=== PATIENT | male | born 1995 | race Caucasian/White ===

== ENCOUNTER 2017-01-28 23:16 | Emergency (ER) | payer OTHER ==
[2017-01-28 23:25] VITALS: BP 160/80
[2017-01-28] MEDS ORDERED: Acetaminophen/oxyCODONE 325-5 MG Tab PO ONE (23:26)
--- NOTE | 2017-01-28 23:32 | EDM.PDOC ---
ED HPI GENERAL MEDICAL PROBLEM - General Chief Complaint: Lower Extremity Injury/Pain Stated Complaint: left leg injury Time Seen by Provider: 01/28/17 23:24 Source of Information: Reports: Patient History Limitations: Reports: No Limitations - History of Present Illness INITIAL COMMENTS - FREE TEXT/NARRATIVE: 21-year-old male attends the ED with an injury to his left medial anterior leg. Patient states he was point football for [employer] earlier today and took a helmet direct blow to the area. He was able to hobble around after this but over the subsequent 6-8 hours he is unable to walk at this time. He has an increasing hematoma in this area. Denies any numbness tingling in his foot. Denies any other injuries.he took 1000 mg of Motrin about 2 hours ago with minimal relief. He's been at the [employer] bar and has had 3 beers tonight. Does not appear to be that intoxicated. Onset: Today Onset Date: 01/28/17 Onset Time: 15:00 Duration: Hour(s): Location: Reports: Lower Extremity, Left ( and anterior tibia.) Quality: Reports: Ache, Throbbing Severity: Moderate Improves with: Reports: None (describes the pain as 8 out of 10.) Worsens with: Reports: Movement Context: Reports: Activity (attempt to weight-bear.injury playing football.) Associated Symptoms: Reports: No Other Symptoms Treatments CARE CLINICIAN: Reports: NSAIDS left lower leg Pain Score (Numeric/FACES): 8 - Related Data Allergies Allergy/AdvReac Type Severity Reaction Status Date / Time No Known Allergies Allergy Verified 01/28/17 23:25 Home Meds: Home Meds Albuterol Sulfate [Albuterol Sulfate HFA] 2 inh PO ASDIRECTED PRN 01/11/15 [ History] oxyCODONE HCl/Acetaminophen [Percocet 5-325 mg Tablet] 1 - 2 each PO Q4H PRN # 20 tablet 01/29/17 [Rx] Past Medical History Respiratory History: Reports: Asthma - Past Surgical History Other Musculoskeletal Surgeries/Procedures:: Nasal fracture with repair but fractured again 2 weeks later in football Social & Family History - Tobacco Use Smoking Status *Q: Never Smoker Second Hand Smoke Exposure: No - Alcohol Use Days Per Week of Alcohol Use: 1 Number of Drinks Per Day: 2 Total Drinks Per Week: 2 - Recreational Drug Use Recreational Drug Use: No - Living Situation & Occupation Living situation: Reports: Single Occupation: Student Review of Systems - Review of Systems Review Of Systems: See Below Constitutional: Reports: No Symptoms Eyes: Reports: No Symptoms Ears: Reports: No Symptoms Nose: Reports: No Symptoms Mouth/Throat: Reports: No Symptoms Respiratory: Reports: No Symptoms Cardiovascular: Reports: No Symptoms GI/Abdominal: Reports: No Symptoms Genitourinary: Reports: No Symptoms Musculoskeletal: Reports: No Symptoms Skin: Reports: No Symptoms Neurological: Reports: Paresthesia Psychiatric: Reports: No Symptoms ED EXAM, GENERAL - Physical Exam Exam: See Below Exam Limited By: No Limitations General Appearance: Alert, WD/WN, No Apparent Distress Respiratory/Chest: No Respiratory Distress, Lungs Clear, Normal Breath Sounds, No Accessory Muscle Use Cardiovascular: Normal Peripheral Pulses, Regular Rate, Rhythm, No Edema, No Gallop, No Murmur Extremities: Other (patient has a large hematoma measuring 12 cm x 8 cm left medial anterior tibia and calf area. He has good posterior tibial pulse and slightly weaker is pedis pulse in the left foot as compared to the right. No evidence of true compartment syndrome.) Neurological: Alert, Oriented, CN II-XII Intact, Normal Cognition, Normal Gait Psychiatric: Normal Affect, Normal Mood Skin Exam: Warm, Dry, Intact, Normal Color, No Rash Course - Vital Signs Last Recorded V/S: Last Vital Signs Temp 36.6 C 01/28/17 23:18 Pulse 92 01/28/17 23:18 Resp 18 01/28/17 23:18 BP 160/80 H 01/28/17 23:18 Pulse Ox 97 01/28/17 23:18 - Orders/Labs/Meds Meds: Medications Discontinued Medications Generic Name Dose Route Start Last Admin Trade Name Fito PRN Reason Stop Dose Admin Oxycodone/Acetaminophen 2 tab 01/28/17 23:26 01/28/17 23:35 Percocet 325-5 Mg PO 01/28/17 23:27 2 tab ONETIME ONE Administration - Radiology Interpretation Free Text/Narrative:: 21-year-old male presents the ED with an acute injury to the left lower leg. Injury from playing football to good direct blow to this area from another player's helmet. Has developed a large hematoma along the medial anterior aspect of his left tibia. This to the point now that he can no longer walk. Injury occurred about 1500 hrs. today and he could walk on it after the initial injury. He has good pulses to his left foot with no evidence of significant compartment syndrome. Plan x-ray of his left tib-fib will be obtained. Plan will be to Alexandr wrap the area with the idea of elevating it ice pack to the area one half out of every 4 hours and to stay off the leg until the hematoma resolves. Given 2 Percocet 5/3/25 milligram tablets in the ED for pain relief. Departure - Departure Time of Disposition: 00:14 Disposition: Home, Self-Care 01 Condition: Fair Clinical Impression: Contusion of left lower leg Qualifiers: Encounter type: initial encounter Qualified Code(s): S80.12XA - Contusion of left lower leg, initial encounter - Discharge Information Prescriptions: oxyCODONE HCl/Acetaminophen [Percocet 5-325 mg Tablet] 1 - 2 each PO Q4H PRN # 20 tablet PRN Reason: pain relief. Instructions: Hematoma, [id number] Referrals: Chandler Freedman Jr, MD [Primary Care Provider] - Forms: ED Department Discharge, ED Return to Work/School Form Additional Instructions: evaluation the emergency room tonight in regards to blunt force trauma that you suffered during football game earlier today with injury to the left lower leg. Development of a large hematoma is occurred in the muscle tissue of the left calf and anterior tibial muscle. X-ray revealed no bony fractures of the tibia itself. Treatment is to elevate the foot is much as possible for the next 3 days. Ice pack to the area one half hour out of every 4 hours for 48 hours after injury. After this may apply heat in the same fashion one half hour out of every 4 hours. Nonweightbearing crutch walking until able to weight-bear without hardly any pain this will likely be 5-7 days. Have the certified personal trainer look at the area in the next 4-5 days. May benefit from deep ultrasound treatment to help liquefy some of the blood and the muscle tissue and help speed up recovery. Will likely not be able to return to football practice for 10-14 days. I.e. when you can run up a flight of stairs without any pain you may return to practice.pain relief to be Motrin 600 mg every 6 hours to relieve inflammation. Percocet 5/3/25 milligram tablets one or 2 every 4-6 hours for pain not controlled by Motrin alone. No pain part will settle down over the next 3-4 days once the swelling has maxed out.
--- NOTE | 2017-01-30 12:50 | CR ---
Left tibia and fibula: Two views of the left tibia and fibula were obtained. Comparison: No prior study. Soft tissue swelling is identified medially. No fracture or other bony abnormality is identified. No opaque soft tissue densities are seen. Impression: 1. Soft tissue swelling. 2. No additional abnormality is identified on two-view left tibia and fibula study. Diagnostic code #2
== END 2017-01-29 00:25 | disposition home or self-care (01) ==
LOC: JD.ED 23:16
DX: S80.12XA Contusion of left lower leg, initial encounter (principal); W21.81XA Striking against or struck by football helmet, initial encounter
CPT/HCPCS: 73590; 99284; A9270; 99283